=== PATIENT | male | born 1995 ===

== ENCOUNTER 2020-09-10 12:30 | Outpatient (CLI) | payer OTHER | END 2020-09-10 12:31 | disposition home or self-care (01) | LOC: PPH VACUNA 12:30 | DX: Z23 Encounter for immunization (principal) ==

== ENCOUNTER 2020-10-01 08:00 | Outpatient (CLI) | payer OTHER | END 2020-10-01 08:30 | disposition home or self-care (01) | LOC: PPH VACUNA 08:00 | DX: Z23 Encounter for immunization (principal) ==